=== PATIENT | female | born 1970 | race Asian ===

== ENCOUNTER 2016-10-16 17:52 | Emergency (ER) | payer OTHER ==
[~2016-10-16] VITALS: Ht 190.5 cm; Wt 154.2 kg
[~2016-10-16 17:52] MED LIST: AMLO10TA; AMLO2.5T PO; AMLO5TAB PO; ASPIRIN/ENTERIC81 MG OR; GEMFIBROZIL PO; GLIM4TAB PO; GLIP10TA55 PO; GLIP10TA66 PO; INSU100I2 SC; INVOKANA300 MG OR; JANUMET1 TA1 PO; LANTUS100 MG/ML SC; LEVEMIR FLEXPEN SC; LISI20TA11 PO; LISI20TA31 PO; LISINOP/HCTZ1 TA2 PO; LOVA20TA PO; METF500T PO; METFORMIN ER1000 MG PO; METOPROLOL25 M1 OR; NOVOLIN R U-1001 ML SC; TRAZODONE150 MG PO
[2016-10-16 17:55] VITALS: TEMP 98.3
[2016-10-16 18:21] LABS: PLATELET COUNT 283 K/uL (152-353)
[2016-10-16 18:32] LABS: POTASSIUM 3.6 mmol/L (3.6-5.2); SODIUM 133 mmol/L (136-145)
[2016-10-16 18:45] VITALS: BP 188/92
== END 2016-10-16 18:55 | disposition home or self-care (01) ==
LOC: ED 17:52
DX: J11.1 Influenza due to unidentified influenza virus with other respiratory manifestations (principal); R06.00 Dyspnea, unspecified
CPT/HCPCS: 80053; 85027; 87081; 87804; 87880; 93005; 96374; 99284; J2930

== ENCOUNTER 2016-11-12 05:23 | Emergency (ER) | payer OTHER ==
[~2016-11-12] VITALS: Ht 190.5 cm; Wt 161.5 kg
[2016-11-12 05:55] VITALS: BP 179/101; TEMP 97.5
== END 2016-11-12 05:59 | disposition home or self-care (01) ==
LOC: ED 05:23
DX: E11.40 Type 2 diabetes mellitus with diabetic neuropathy, unspecified (principal)
CPT/HCPCS: 99282; Q0177

== ENCOUNTER 2016-12-22 16:55 | Outpatient (CLI) | payer OTHER ==
[2016-12-23] MEDS ORDERED: HYDRALAZINE10 MG PO (09:30)
[2016-12-23] MEDS ORDERED: NOVOLOG100 MG/ML SC (09:34)
[2016-12-23] MEDS ORDERED: TRESIBA FL200 UNIT/M SC (09:35)
== END 2016-12-22 17:05 | disposition short-term general hospital (02) ==
LOC: AMB 16:55
DX: R53.1 Weakness (principal); E66.8 Other obesity; M54.89 Other dorsalgia; R26.89 Other abnormalities of gait and mobility
CPT/HCPCS: A0425; A0427

== ENCOUNTER 2016-12-22 17:07 | Observation (INO) | payer OTHER ==
[~2016-12-22] VITALS: Ht 190.5 cm; Wt 163.3 kg
[2016-12-22 17:06] VITALS: BP 153/104; TEMP 98.5
[2016-12-22 17:42] LABS: PLATELET COUNT 249 K/uL (152-353)
[2016-12-22 17:44] LABS: POTASSIUM 4.2 mmol/L (3.6-5.2)
[2016-12-23 04:00] VITALS: TEMP 97.9
[2016-12-23 05:15] LABS: PLATELET COUNT 235 K/uL (152-353)
[2016-12-23 05:26] LABS: POTASSIUM 3.5 mmol/L (3.6-5.2); SODIUM 140 mmol/L (136-145)
[2016-12-23 08:00] VITALS: BP 158/104; TEMP 98
[2016-12-23] MEDS ORDERED: HYDRALAZINE10 MG PO (09:30)
[2016-12-23] MEDS ORDERED: NOVOLOG100 MG/ML SC (09:34)
[2016-12-23] MEDS ORDERED: TRESIBA FL200 UNIT/M SC (09:35)
--- NOTE | 2016-12-23 14:16 | NUR ---
IV D/C'd. NO REDNESS OR EDEMA OBSERVED. DISCHARGE INSTRUCTIONS SIGNED AND GIVEN. Pt. EXIT OUT OF FRONT ENTRANCE VIA W/C.
== END 2016-12-23 14:16 | disposition home or self-care (01) ==
LOC: ED 17:07 → MED/SURG 12-23 00:18
PROVIDERS: Internal Medicine; ADMIT Specialist
DX: E11.65 Type 2 diabetes mellitus with hyperglycemia (principal); Z79.4 Long term (current) use of insulin; R41.82 Altered mental status, unspecified; M79.1 Myalgia; I10 Essential (primary) hypertension
CPT/HCPCS: 36415; 36600; 80048; 80053; 81002; 82550; 82553; 82805; 82948; 83036; 83735; 84100; 84443; 85027; 96361; 96366; 96374; 96375; 99220; 99284; G0378; J1815; J1885

== ENCOUNTER 2017-01-13 19:41 | Outpatient (CLI) | payer OTHER ==
[~2017-01-13 19:41] MED LIST changes: +HYDRALAZINE10 MG PO; +NOVOLOG100 MG/ML SC; +TRESIBA FL200 UNIT/M SC
== END 2017-01-13 19:44 | disposition short-term general hospital (02) ==
LOC: AMB 19:41
DX: R55 Syncope and collapse (principal)
CPT/HCPCS: A0425; A0427

== ENCOUNTER 2017-01-13 19:47 | Emergency (ER) | payer OTHER ==
[~2017-01-13] VITALS: Ht 190.5 cm; Wt 154.2 kg
[2017-01-13 20:19] LABS: PLATELET COUNT 283 K/uL (152-353)
[2017-01-13 20:29] LABS: POTASSIUM 3.8 mmol/L (3.6-5.2)
[2017-01-13 21:44] VITALS: BP 135/72; TEMP 98.3
== END 2017-01-13 21:50 | disposition home or self-care (01) ==
LOC: ED 19:47
DX: M79.1 Myalgia (principal); R00.0 Tachycardia, unspecified
CPT/HCPCS: 36415; 80053; 80307; 85027; 93005; 96374; 99284; G0479; J1885

== ENCOUNTER 2017-01-15 13:05 | Outpatient (CLI) | payer OTHER | END 2017-01-15 19:42 | disposition home or self-care (01) | LOC: LABW 13:05 | DX: M79.7 Fibromyalgia (principal) | CPT/HCPCS: 36415; 85651; 86039; 86140; 86430 ==

== ENCOUNTER 2017-01-21 10:18 | Outpatient (CLI) | payer OTHER | END 2017-01-21 11:30 | disposition home or self-care (01) | LOC: MRI 10:18 | DX: M79.7 Fibromyalgia (principal) ==

== ENCOUNTER 2017-02-10 10:21 | Emergency (ER) | payer OTHER ==
[~2017-02-10] VITALS: Ht 190.5 cm; Wt 149.7 kg
[2017-02-10 10:30] VITALS: TEMP 98.2
[2017-02-10 11:26] LABS: PLATELET COUNT 280 K/uL (152-353)
[2017-02-10 12:03] LABS: POTASSIUM 3.1 mmol/L (3.6-5.2); SODIUM 130 mmol/L (136-145)
[2017-02-10 14:50] VITALS: BP 153/86
== END 2017-02-10 15:15 | disposition home or self-care (01) ==
LOC: ED 10:21
DX: R11.2 Nausea with vomiting, unspecified (principal); E86.9 Volume depletion, unspecified; E86.0 Dehydration; K52.9 Noninfective gastroenteritis and colitis, unspecified; E11.65 Type 2 diabetes mellitus with hyperglycemia; R00.0 Tachycardia, unspecified
CPT/HCPCS: 36415; 80053; 82150; 83036; 83690; 85027; 93005; 96360; 96361; 96365; 96372; 96374; 99284; J1815; J1885; J2405

== ENCOUNTER 2017-04-22 00:52 | Emergency (ER) | payer OTHER ==
[~2017-04-22] VITALS: Ht 190.5 cm; Wt 145.2 kg
[2017-04-22 01:46] LABS: PLATELET COUNT 265 K/uL (152-353)
[2017-04-22 02:08] LABS: POTASSIUM 3.6 mmol/L (3.6-5.2)
[2017-04-22 03:49] VITALS: BP 177/86; TEMP 98.6
== END 2017-04-22 03:49 | disposition home or self-care (01) ==
LOC: ED 00:52
DX: K29.00 Acute gastritis without bleeding (principal); B96.81 Helicobacter pylori [H. pylori] as the cause of diseases classified elsewhere
CPT/HCPCS: 36415; 74022; 80053; 82150; 83690; 85027; 86318; 96360; 96361; 96372; 96375; 99284; J1815; J1885; J2405

== ENCOUNTER 2017-05-31 09:13 | Inpatient (IN) | payer OTHER ==
[~2017-05-31] VITALS: Ht 190.5 cm; Wt 146.1 kg
[2017-05-31 09:26] VITALS: BP 252/145; TEMP 98.6
[2017-05-31 11:16] LABS: PLATELET COUNT 274 K/uL (152-353)
[2017-05-31 11:22] LABS: POTASSIUM 3.3 mmol/L (3.6-5.2); SODIUM 132 mmol/L (136-145)
[2017-05-31 17:08] VITALS: BP 228/129; TEMP 97.8; Ht 190.5 cm; Wt 146.1 kg
[2017-05-31 20:23] VITALS: BP 234/109; TEMP 98.4
[2017-06-01] VITALS: BP 139/86; TEMP 98.4
[2017-06-01 04:00] VITALS: BP 125/68; TEMP 98.6
[2017-06-01 05:49] LABS: POTASSIUM 3.3 mmol/L (3.6-5.2); SODIUM 139 mmol/L (136-145)
[2017-06-01 06:24] LABS: PLATELET COUNT 261 K/uL (152-353)
[2017-06-01 07:57] VITALS: BP 166/85; TEMP 98
[2017-06-01 12:00] VITALS: BP 148/70; TEMP 98
[2017-06-01 16:00] VITALS: BP 167/77; TEMP 98.1
[2017-06-01 20:00] VITALS: BP 187/91; TEMP 98.7
[2017-06-02] VITALS (7 sets, daily range): BP systolic 166–210; BP diastolic 88–112; TEMP 97.9–99.6
[2017-06-02 05:34] LABS: PLATELET COUNT 256 K/uL (152-353)
[2017-06-02 05:54] LABS: POTASSIUM 3.4 mmol/L (3.6-5.2); SODIUM 136 mmol/L (136-145)
[2017-06-03] VITALS: BP 140/92; TEMP 98.4
[2017-06-03 04:00] VITALS: BP 163/107; TEMP 99
[2017-06-03 06:36] LABS: PLATELET COUNT 272 K/uL (152-353)
[2017-06-03 06:51] LABS: POTASSIUM 3.1 mmol/L (3.6-5.2); SODIUM 134 mmol/L (136-145)
[2017-06-03 07:30] VITALS: BP 176/110; TEMP 98.9
== END 2017-06-03 14:00 | disposition home or self-care (01) | DRG 603 ==
LOC: ED 09:13 → MED/SURG 15:37
PROVIDERS: Family Medicine; ADMIT Specialist
DX: L02.214 Cutaneous abscess of groin (principal); L03.314 Cellulitis of groin; I10 Essential (primary) hypertension; R52 Pain, unspecified; G89.29 Other chronic pain; G47.09 Other insomnia; E11.42 Type 2 diabetes mellitus with diabetic polyneuropathy; B95.1 Streptococcus, group B, as the cause of diseases classified elsewhere
CPT/HCPCS: 36415; 80048; 80053; 82947; 82948; 83605; 83735; 83880; 84100; 85027; 85651; 87040; 87070; 87077; 87185; 87186; 87205; 93005; 96365; 96372; 99283; J1200; J1815; J1885; J2060; J2270; J2543

== ENCOUNTER 2017-07-07 01:44 | Emergency (ER) | payer OTHER ==
[~2017-07-07] VITALS: Ht 190.5 cm; Wt 151.5 kg
[2017-07-07 01:57] VITALS: BP 188/115; TEMP 98.2
== END 2017-07-07 02:27 | disposition home or self-care (01) ==
LOC: ED 01:44
DX: R52 Pain, unspecified (principal); I10 Essential (primary) hypertension
CPT/HCPCS: 99281

== ENCOUNTER 2017-07-08 13:36 | Outpatient (CLI) | payer OTHER ==
[2017-07-08 14:05] LABS: PLATELET COUNT 269 K/uL (152-353)
[2017-07-08 14:39] LABS: POTASSIUM 3.8 mmol/L (3.6-5.2); SODIUM 135 mmol/L (136-145)
== END 2017-07-08 21:18 | disposition home or self-care (01) ==
LOC: LAB 13:36
PROVIDERS: Nurse Practitioner Family
DX: Z00.00 Encounter for general adult medical examination without abnormal findings (principal); R53.83 Other fatigue; R53.81 Other malaise; E11.65 Type 2 diabetes mellitus with hyperglycemia; I10 Essential (primary) hypertension; E78.4 Other hyperlipidemia; Z79.899 Other long term (current) drug therapy; Z51.81 Encounter for therapeutic drug level monitoring
CPT/HCPCS: 80053; 80061; 83036; 84436; 84443; 84550; 85027; 85651; 86039; 86431

== ENCOUNTER 2017-07-23 10:38 | Emergency (ER) | payer OTHER ==
[~2017-07-23] VITALS: Ht 190.5 cm; Wt 155.1 kg
[2017-07-23 12:54] LABS: PLATELET COUNT 250 K/uL (152-353)
[2017-07-23 13:05] LABS: POTASSIUM 4.4 mmol/L (3.6-5.2); SODIUM 133 mmol/L (136-145)
[2017-07-23 19:28] VITALS: BP 156/91; TEMP 98.5
== END 2017-07-23 19:39 | disposition home or self-care (01) ==
LOC: ED 10:38
PROVIDERS: Emergency Medicine
DX: L03.115 Cellulitis of right lower limb (principal); I10 Essential (primary) hypertension
CPT/HCPCS: 36415; 80053; 82550; 84484; 85027; 85379; 96374; 96375; 96376; 99285; J0360; J2060; J3490

== ENCOUNTER 2017-08-26 13:09 | Emergency (ER) | payer OTHER ==
[~2017-08-26] VITALS: Ht 182.9 cm; Wt 152.0 kg
[2017-08-26 13:12] VITALS: TEMP 97.7
[2017-08-26 13:47] LABS: PLATELET COUNT 347 K/uL (152-353); POTASSIUM 4.1 mmol/L (3.6-5.2)
[2017-08-26 14:07] LABS: PARTIAL THROMBOPLASTIN TIME 22.3 SECONDS (24.5-33.6)
[2017-08-26 16:29] VITALS: BP 132/89
== END 2017-08-26 16:29 | disposition home or self-care (01) ==
LOC: ED 13:09
PROVIDERS: Family Medicine
DX: I16.0 Hypertensive urgency (principal); R00.0 Tachycardia, unspecified; I45.81 Long QT syndrome
CPT/HCPCS: 36415; 80053; 82550; 84484; 85027; 85610; 85730; 93005; 96374; 96375; 99284; J0360; J1170; J2405; J3490

== ENCOUNTER 2017-08-28 10:40 | Outpatient (CLI) | payer OTHER | END 2017-08-28 21:51 | disposition home or self-care (01) | LOC: INF 10:40 | DX: E86.0 Dehydration (principal) | CPT/HCPCS: 96360 ==

== ENCOUNTER 2017-09-09 23:10 | Emergency (ER) | payer OTHER ==
[~2017-09-09] VITALS: Ht 190.5 cm; Wt 152.0 kg
[2017-09-09 23:49] LABS: PLATELET COUNT 289 K/uL (152-353)
[2017-09-10 00:02] LABS: POTASSIUM 3.1 mmol/L (3.6-5.2)
[2017-09-10 02:37] VITALS: BP 168/120; TEMP 99.1
== END 2017-09-10 02:38 | disposition home or self-care (01) ==
LOC: ED 23:10
DX: N20.0 Calculus of kidney (principal); K43.9 Ventral hernia without obstruction or gangrene; E11.9 Type 2 diabetes mellitus without complications
CPT/HCPCS: 36415; 80053; 82150; 83690; 85027; 96374; 96375; 96376; 99284; J1815; J2175; J2405

== ENCOUNTER 2017-11-01 02:28 | Emergency (ER) | payer OTHER ==
[~2017-11-01] VITALS: Ht 190.5 cm; Wt 147.0 kg
[2017-11-01 03:16] LABS: PLATELET COUNT 291 K/uL (152-353)
[2017-11-01 03:58] LABS: POTASSIUM 3.5 mmol/L (3.6-5.2)
[2017-11-01 05:55] VITALS: BP 128/73; TEMP 97.5
== END 2017-11-01 06:11 | disposition short-term general hospital (02) ==
LOC: ED 02:28
DX: K56.699 Other intestinal obstruction unspecified as to partial versus complete obstruction (principal); E11.9 Type 2 diabetes mellitus without complications; I10 Essential (primary) hypertension
CPT/HCPCS: 36415; 74022; 80053; 82150; 83690; 85027; 96365; 96374; 96375; 99284; J1885; J2175; J2405; J3490

== ENCOUNTER 2017-11-01 06:14 | Outpatient (CLI) | payer OTHER | END 2017-11-01 06:20 | disposition short-term general hospital (02) | LOC: AMB 06:14 | DX: K56.699 Other intestinal obstruction unspecified as to partial versus complete obstruction (principal); E11.9 Type 2 diabetes mellitus without complications; I10 Essential (primary) hypertension | CPT/HCPCS: A0425; A0429 ==

== ENCOUNTER 2017-11-02 10:48 | Outpatient (CLI) | payer OTHER ==
[2017-11-02 11:55] LABS: POTASSIUM 3.4 mmol/L (3.6-5.2)
== END 2017-11-02 23:35 | disposition home or self-care (01) ==
LOC: LABW 10:48
PROVIDERS: Nurse Practitioner Family
DX: E11.65 Type 2 diabetes mellitus with hyperglycemia (principal); K42.9 Umbilical hernia without obstruction or gangrene
CPT/HCPCS: 36415; 80053; 83605

== ENCOUNTER 2017-11-05 10:03 | Outpatient (CLI) | payer OTHER | END 2017-11-05 22:47 | disposition home or self-care (01) | LOC: NM 10:03 | DX: K31.84 Gastroparesis (principal) | CPT/HCPCS: A9541 ==

== ENCOUNTER 2017-12-28 12:14 | Emergency (ER) | payer OTHER ==
[~2017-12-28] VITALS: Ht 190.5 cm; Wt 145.2 kg
[2017-12-28 13:58] LABS: PLATELET COUNT 230 K/uL (152-353)
[2017-12-28 15:03] LABS: POTASSIUM 3.5 mmol/L (3.6-5.2)
[2017-12-28] MEDS ORDERED: PHENELX32 PO (15:14)
[2017-12-28] MEDS ORDERED: PANTOPRAZOLE 40MG TA PO (15:14)
[2017-12-28 15:46] VITALS: BP 135/87; TEMP 97.2
== END 2017-12-28 15:53 | disposition home or self-care (01) ==
LOC: ED 12:14
DX: K25.9 Gastric ulcer, unspecified as acute or chronic, without hemorrhage or perforation (principal); K31.84 Gastroparesis; M25.50 Pain in unspecified joint
CPT/HCPCS: 36415; 80053; 80307; 81000; 82150; 83690; 85027; 99284

== ENCOUNTER 2018-01-15 00:55 | Emergency (ER) | payer OTHER ==
[~2018-01-15] VITALS: Ht 190.5 cm; Wt 145.2 kg
[~2018-01-15 00:55] MED LIST changes: +PANTOPRAZOLE 40MG TA PO; +PHENELX32 PO
[2018-01-15 01:44] LABS: PLATELET COUNT 303 K/uL (152-353)
[2018-01-15 02:30] LABS: POTASSIUM 3.4 mmol/L (3.6-5.2)
[2018-01-15 06:27] VITALS: BP 172/103; TEMP 98.7
== END 2018-01-15 06:38 | disposition short-term general hospital (02) ==
LOC: ED 00:55
DX: J81.0 Acute pulmonary edema (principal); R00.0 Tachycardia, unspecified
CPT/HCPCS: 36415; 36600; 80053; 81000; 82550; 82805; 83880; 84484; 85027; 87077; 87086; 87088; 87186; 93005; 94664; 96372; 99284; J1940; J2930

== ENCOUNTER 2018-01-15 06:36 | Outpatient (CLI) | payer OTHER | END 2018-01-15 08:00 | disposition short-term general hospital (02) | LOC: AMB 06:36 | DX: J81.0 Acute pulmonary edema (principal); R00.0 Tachycardia, unspecified | CPT/HCPCS: A0425; A0427 ==

== ENCOUNTER 2018-03-12 23:53 | Emergency (ER) | payer OTHER ==
[~2018-03-12] VITALS: Ht 190.5 cm; Wt 154.2 kg
[~2018-03-12 23:53] MED LIST changes: -ASPIRIN/ENTERIC81 MG OR; +ASPIRIN/ENTERIC81 MG PO
[2018-03-13 00:02] VITALS: TEMP 98.8
[2018-03-13] MEDS ORDERED: ACYCLOVIR800 MG PO (00:10)
[2018-03-13 01:03] VITALS: BP 174/94
== END 2018-03-13 01:04 | disposition home or self-care (01) ==
LOC: ED 23:53
DX: B02.9 Zoster without complications (principal)
CPT/HCPCS: 96372; 99283; J2175

== ENCOUNTER 2018-03-23 14:37 | Emergency (ER) | payer OTHER ==
[~2018-03-23] VITALS: Ht 190.5 cm; Wt 154.2 kg
[~2018-03-23 14:37] MED LIST changes: +ACYCLOVIR800 MG PO
[2018-03-23 15:39] LABS: PLATELET COUNT 327 K/uL (152-353)
[2018-03-23 15:52] LABS: POTASSIUM 3.9 mmol/L (3.6-5.2)
[2018-03-23 19:48] VITALS: BP 156/114; TEMP 98.6
== END 2018-03-23 19:48 | disposition home or self-care (01) ==
LOC: ED 14:37
DX: J45.901 Unspecified asthma with (acute) exacerbation (principal); J18.9 Pneumonia, unspecified organism; R06.02 Shortness of breath
CPT/HCPCS: 36415; 80053; 81000; 83880; 85027; 93005; 94664; 96360; 96374; 96375; 99284; J1940; J2270; J2930

== ENCOUNTER 2018-06-06 09:03 | Outpatient (CLI) | payer OTHER ==
[2018-06-06] MEDS ORDERED: AMLODIPINE BESYLATE PO (10:25)
[2018-06-06] MEDS ORDERED: MOBIC15 MG PO (10:31)
[2018-06-06] MEDS ORDERED: HYDR25TA60 PO (10:32)
== END 2018-06-06 09:13 | disposition short-term general hospital (02) ==
LOC: AMB 09:03
DX: M79.661 Pain in right lower leg (principal)
CPT/HCPCS: A0425; A0427

== ENCOUNTER 2018-06-06 09:04 | Emergency (ER) | payer OTHER ==
[~2018-06-06] VITALS: Ht 190.5 cm; Wt 145.2 kg
[2018-06-06 09:04] VITALS: TEMP 97.3
[2018-06-06] MEDS ORDERED: AMLODIPINE BESYLATE PO (10:25)
[2018-06-06] MEDS ORDERED: MOBIC15 MG PO (10:31)
[2018-06-06] MEDS ORDERED: HYDR25TA60 PO (10:32)
[2018-06-06 11:27] LABS: PLATELET COUNT 223 K/uL (152-353)
[2018-06-06 11:33] LABS: POTASSIUM 3.9 mmol/L (3.6-5.2)
[2018-06-06 13:05] VITALS: BP 106/68
== END 2018-06-06 13:05 | disposition home or self-care (01) ==
LOC: ED 10:08
PROVIDERS: Family Medicine
PROC: 2W3QX1Z Immobilization of Right Lower Leg using Splint (ICD-10-PCS; principal; 2018-06-06)
DX: S93.491A Sprain of other ligament of right ankle, initial encounter (principal); S80.01XA Contusion of right knee, initial encounter; W18.39XA Other fall on same level, initial encounter; Y92.89 Other specified places as the place of occurrence of the external cause
CPT/HCPCS: 36415; 80053; 85027; 96372; 99283; J1885; L1830

== ENCOUNTER 2018-06-27 06:35 | Emergency (ER) | payer OTHER ==
[~2018-06-27] VITALS: Ht 190.5 cm; Wt 145.2 kg
[~2018-06-27 06:35] MED LIST changes: +AMLODIPINE BESYLATE PO; +HYDR25TA60 PO; +MOBIC15 MG PO
[2018-06-27] MEDS ORDERED: OMEPRAZOLE20 M1 PO (06:49)
[2018-06-27] MEDS ORDERED: TIZANIDINE HYDRO4 MG PO (06:49)
[2018-06-27] MEDS ORDERED: SEROQUEL25 MG PO (06:50)
[2018-06-27] MEDS ORDERED: VICODIN HP1 TA1 PO (06:50)
[2018-06-27 07:43] LABS: PLATELET COUNT 319 K/uL (152-353)
[2018-06-27 07:50] LABS: POTASSIUM 3.3 mmol/L (3.6-5.2)
[2018-06-27 08:28] VITALS: BP 140/88; TEMP 97.8
== END 2018-06-27 08:28 | disposition home or self-care (01) ==
LOC: ED 06:35
PROVIDERS: Family Medicine
DX: R11.2 Nausea with vomiting, unspecified (principal); R10.13 Epigastric pain; R07.89 Other chest pain; E11.65 Type 2 diabetes mellitus with hyperglycemia; E11.43 Type 2 diabetes mellitus with diabetic autonomic (poly)neuropathy; K31.84 Gastroparesis; I50.9 Heart failure, unspecified; R00.0 Tachycardia, unspecified
CPT/HCPCS: 36415; 74022; 80053; 81000; 82150; 82550; 82553; 83690; 83880; 84484; 85027; 85379; 93005; 96360; 99284

== ENCOUNTER 2018-09-22 10:57 | Emergency (ER) | payer OTHER ==
[~2018-09-22] VITALS: Ht 190.5 cm; Wt 145.2 kg
[~2018-09-22 10:57] MED LIST changes: +OMEPRAZOLE20 M1 PO; +SEROQUEL25 MG PO; +TIZANIDINE HYDRO4 MG PO; +VICODIN HP1 TA1 PO
[2018-09-22 11:16] VITALS: BP 149/108; TEMP 98.4
== END 2018-09-22 11:35 | disposition left against medical advice (07) ==
LOC: ED 10:57
DX: K27.3 Acute peptic ulcer, site unspecified, without hemorrhage or perforation (principal)
CPT/HCPCS: 99281

== ENCOUNTER 2018-10-17 10:14 | Outpatient (CLI) | payer OTHER ==
[2018-10-17] MEDS ORDERED: HYDR25TA60 PO (10:41)
== END 2018-10-17 10:24 | disposition short-term general hospital (02) ==
LOC: AMB 10:14
DX: R52 Pain, unspecified (principal)
CPT/HCPCS: A0425; A0427

== ENCOUNTER 2018-10-17 10:29 | Emergency (ER) | payer OTHER ==
[~2018-10-17] VITALS: Ht 190.5 cm; Wt 145.2 kg
[2018-10-17] MEDS ORDERED: HYDR25TA60 PO (10:41)
[2018-10-17 11:39] LABS: PLATELET COUNT 264 K/uL (152-353)
[2018-10-17 11:49] LABS: POTASSIUM 3.9 mmol/L (3.6-5.2)
[2018-10-17 16:10] LABS: POTASSIUM 3.9 mmol/L (3.6-5.2)
[2018-10-17 17:30] VITALS: BP 125/78; TEMP 97.7
== END 2018-10-17 17:30 | disposition home or self-care (01) ==
LOC: ED 10:29
PROVIDERS: Family Medicine
DX: G89.29 Other chronic pain (principal); E87.1 Hypo-osmolality and hyponatremia; E11.9 Type 2 diabetes mellitus without complications
CPT/HCPCS: 80048; 80053; 81000; 85027; 96361; 96372; 96374; 96375; 99284; J1815; J1885; J1940; J2175; J2550

== ENCOUNTER 2019-01-15 17:49 | Inpatient (IN) | payer OTHER ==
[~2019-01-15] VITALS: Ht 190.5 cm; Wt 132.6 kg
[2019-01-15 18:08] VITALS: BP 148/87; TEMP 98.8
[2019-01-15 18:31] LABS: PLATELET COUNT 324 K/uL (152-353)
[2019-01-15 18:45] LABS: POTASSIUM 5.7 mmol/L (3.6-5.2)
[2019-01-15 19:22] VITALS: BP 133/91
[2019-01-15 22:46] VITALS: BP 130/78; TEMP 98.5; Ht 190.5 cm; Wt 132.6 kg
[2019-01-16] VITALS (7 sets, daily range): BP systolic 104–186; BP diastolic 76–110; TEMP 98–99.1
[2019-01-16 02:23] LABS: PLATELET COUNT 257 K/uL (152-353)
[2019-01-16 02:33] LABS: POTASSIUM 3.2 mmol/L (3.6-5.2)
[2019-01-16 17:35] LABS: POTASSIUM 2.9 mmol/L (3.6-5.2)
[2019-01-17 04:00] VITALS: BP 192/104; TEMP 98.4
[2019-01-17 08:00] VITALS: BP 176/80; TEMP 98.5
[2019-01-17 12:00] VITALS: BP 202/114; TEMP 98.7
[2019-01-17 16:00] VITALS: BP 238/118; TEMP 98.5
[2019-01-17 16:31] LABS: PLATELET COUNT 192 K/uL (152-353)
[2019-01-17 16:43] LABS: POTASSIUM 3.2 mmol/L (3.6-5.2)
== END 2019-01-17 20:20 | disposition short-term general hospital (02) | DRG 375 ==
LOC: ED 17:49 → MED/SURG 20:10
PROVIDERS: Internal Medicine; ADMIT Family Medicine
PROC: 05H633Z Insertion of Infusion Device into Left Subclavian Vein, Percutaneous Approach (ICD-10-PCS; principal; 2019-01-17)
DX: C16.9 Malignant neoplasm of stomach, unspecified (principal); N17.8 Other acute kidney failure; E87.2 Acidosis; I10 Essential (primary) hypertension; E11.9 Type 2 diabetes mellitus without complications; E87.5 Hyperkalemia; R10.12 Left upper quadrant pain
CPT/HCPCS: 36415; 74022; 80048; 80053; 82150; 83605; 83690; 85027; 96360; 96375; 99284; C1751; J0360; J1170; J1650; J1815; J2185; J2270; J2405; J2550; J3490

== ENCOUNTER 2019-06-16 11:06 | Outpatient (CLI) | payer OTHER ==
[2019-06-16 11:20] VITALS: BP 124/68; TEMP 97.8
[2019-06-16 14:24] LABS: PLATELET COUNT 300 K/uL (152-353)
[2019-06-16 14:34] LABS: POTASSIUM 3.6 mmol/L (3.6-5.2)
== END 2019-06-16 11:48 | disposition home or self-care (01) ==
LOC: INF 11:06
PROVIDERS: Registered Nurse
DX: E78.5 Hyperlipidemia, unspecified (principal); R53.83 Other fatigue; E55.9 Vitamin D deficiency, unspecified; K11.7 Disturbances of salivary secretion; M79.7 Fibromyalgia; Z79.899 Other long term (current) drug therapy
CPT/HCPCS: 36591; 80053; 80061; 82306; 84439; 84443; 85027; 85651; 86140; 96374

== ENCOUNTER 2019-09-08 23:53 | Emergency (ER) | payer OTHER ==
[~2019-09-08] VITALS: Ht 190.5 cm; Wt 133.8 kg
[2019-09-09 01:11] LABS: PLATELET COUNT 273 K/uL (152-353)
[2019-09-09 01:20] LABS: POTASSIUM 3.2 mmol/L (3.6-5.2)
[2019-09-09 04:08] VITALS: BP 155/78; TEMP 98.1
== END 2019-09-09 04:08 | disposition home or self-care (01) ==
LOC: ED 23:53
PROVIDERS: Hospitalist
DX: K29.60 Other gastritis without bleeding (principal); E11.65 Type 2 diabetes mellitus with hyperglycemia; I16.0 Hypertensive urgency; R00.0 Tachycardia, unspecified
CPT/HCPCS: 36415; 36600; 80053; 81000; 81002; 81025; 82150; 82550; 82805; 83690; 84484; 85027; 93005; 96360; 96375; 99284; J1815; J1885; J2405; J3490

== ENCOUNTER 2019-11-28 08:16 | Outpatient (CLI) | payer OTHER | END 2019-11-28 19:34 | disposition home or self-care (01) | LOC: MRI 08:16 | DX: M13.851 Other specified arthritis, right hip (principal) ==

== ENCOUNTER 2019-12-31 11:56 | Emergency (ER) | payer OTHER ==
[~2019-12-31] VITALS: Ht 190.5 cm; Wt 133.8 kg
[2019-12-31 16:45] VITALS: BP 133/78; TEMP 98.1
== END 2019-12-31 16:46 | disposition home or self-care (01) ==
LOC: ED 11:56
DX: S39.012A Strain of muscle, fascia and tendon of lower back, initial encounter (principal); S40.011A Contusion of right shoulder, initial encounter; S70.01XA Contusion of right hip, initial encounter; S60.211A Contusion of right wrist, initial encounter; W18.39XA Other fall on same level, initial encounter; Y92.89 Other specified places as the place of occurrence of the external cause
CPT/HCPCS: 36415; 96360; 96375; 99284; J1642; J1885

== ENCOUNTER 2020-01-31 09:30 | Outpatient (CLI) | payer OTHER | END 2020-01-31 20:33 | disposition home or self-care (01) | LOC: CT 09:30 | DX: R94.2 Abnormal results of pulmonary function studies (principal) ==

== ENCOUNTER 2020-02-28 09:58 | Emergency (ER) | payer OTHER ==
[~2020-02-28] VITALS: Ht 190.5 cm; Wt 133.8 kg
[2020-02-28 11:23] LABS: PLATELET COUNT 223 K/uL (152-353)
[2020-02-28 11:35] LABS: POTASSIUM 3.6 mmol/L (3.6-5.2); SODIUM 130 mmol/L (136-145)
[2020-02-28 19:51] VITALS: BP 137/87; TEMP 100.5
== END 2020-02-28 19:52 | disposition home or self-care (01) ==
LOC: ED 09:58
PROVIDERS: Family Medicine
DX: E11.65 Type 2 diabetes mellitus with hyperglycemia (principal); Z79.4 Long term (current) use of insulin; R11.0 Nausea; E87.1 Hypo-osmolality and hyponatremia
CPT/HCPCS: 36591; 80053; 81000; 81002; 82550; 82962; 84484; 85027; 93005; 96360; 96361; 96375; 99284; J1642; J1815; J2405; J2550

== ENCOUNTER 2020-03-05 08:40 | Outpatient (CLI) | payer OTHER | END 2020-03-05 22:35 | disposition home or self-care (01) | LOC: CT 08:40 | DX: M10.09 Idiopathic gout, multiple sites (principal); M17.0 Bilateral primary osteoarthritis of knee; M19.041 Primary osteoarthritis, right hand; M19.042 Primary osteoarthritis, left hand; M19.071 Primary osteoarthritis, right ankle and foot; M19.072 Primary osteoarthritis, left ankle and foot; M35.01 Sjogren syndrome with keratoconjunctivitis; M79.7 Fibromyalgia; R76.0 Raised antibody titer; Z68.35 Body mass index [BMI] 35.0-35.9, adult; R94.2 Abnormal results of pulmonary function studies ==

== ENCOUNTER 2020-03-30 11:20 | Outpatient (CLI) | payer OTHER ==
[2020-03-30 11:51] LABS: POTASSIUM 3.5 mmol/L (3.6-5.2)
== END 2020-03-30 20:40 | disposition home or self-care (01) ==
LOC: LABW 11:20
PROVIDERS: Internal Medicine Endocrinology, Diabetes & Metabolism
DX: E11.65 Type 2 diabetes mellitus with hyperglycemia (principal); E78.49 Other hyperlipidemia; I10 Essential (primary) hypertension; E66.9 Obesity, unspecified
CPT/HCPCS: 36415; 80053; 80061; 82043; 82570; 83519; 84681; 86341

== ENCOUNTER 2020-04-25 01:33 | Emergency (ER) | payer OTHER ==
[~2020-04-25] VITALS: Ht 190.5 cm; Wt 127.0 kg
[2020-04-25 02:50] LABS: POTASSIUM 3.4 mmol/L (3.6-5.2)
[2020-04-25 04:10] LABS: PLATELET COUNT 262 K/uL (152-353)
[2020-04-25 06:09] VITALS: BP 217/101; TEMP 98.9
== END 2020-04-25 06:09 | disposition home or self-care (01) ==
LOC: ED 01:33
PROVIDERS: Emergency Medicine Emergency Medical Services
DX: R11.2 Nausea with vomiting, unspecified (principal); S76.812A Strain of other specified muscles, fascia and tendons at thigh level, left thigh, initial encounter; Z98.890 Other specified postprocedural states
CPT/HCPCS: 36415; 80053; 83690; 85027; 96360; 96375; 99284; J1642; J1885; J2270; J2405; J3490

== ENCOUNTER 2020-07-11 11:14 | Day surgery (SDC) | payer OTHER ==
[2020-07-09 11:26] LABS: PLATELET COUNT 217 K/uL (152-353)
[2020-07-09 11:35] LABS: POTASSIUM 3.1 mmol/L (3.6-5.2)
[~2020-07-11] VITALS: Ht 30.5 cm; Wt 0.5 kg
== END 2020-07-11 15:55 | disposition home or self-care (01) ==
LOC: OR 11:14
PROVIDERS: ATTEND Internal Medicine Gastroenterology
PROC: 0DBK8ZZ Excision of Ascending Colon, Via Natural or Artificial Opening Endoscopic (ICD-10-PCS; principal; 2020-07-11)
PROC: 0DBM8ZZ Excision of Descending Colon, Via Natural or Artificial Opening Endoscopic (ICD-10-PCS; 2020-07-11)
PROC: 0DBE8ZZ Excision of Large Intestine, Via Natural or Artificial Opening Endoscopic (ICD-10-PCS; 2020-07-11)
DX: K52.89 Other specified noninfective gastroenteritis and colitis (principal); D12.2 Benign neoplasm of ascending colon; D12.4 Benign neoplasm of descending colon; K64.8 Other hemorrhoids; R10.30 Lower abdominal pain, unspecified; R79.89 Other specified abnormal findings of blood chemistry; R19.7 Diarrhea, unspecified
CPT/HCPCS: 80053; 85027; J1642; J2704; J7120

== ENCOUNTER 2020-08-04 05:21 | Emergency (ER) | payer OTHER ==
[~2020-08-04] VITALS: Ht 190.5 cm; Wt 123.4 kg
[2020-08-04 06:44] LABS: PLATELET COUNT 257 K/uL (152-353)
[2020-08-04 08:40] VITALS: BP 149/76; TEMP 98.9
== END 2020-08-04 08:40 | disposition home or self-care (01) ==
LOC: ED 05:21
PROVIDERS: Family Medicine
DX: N39.0 Urinary tract infection, site not specified (principal)
CPT/HCPCS: 81000; 85027; 96374; 96375; 96376; 99284; J0360; J1642; J1885; J2175; J2405; J2930

== ENCOUNTER 2020-08-29 16:51 | Emergency (ER) | payer OTHER ==
[~2020-08-29] VITALS: Ht 190.5 cm; Wt 123.4 kg
[2020-08-29 18:35] LABS: POTASSIUM 3.8 mmol/L (3.6-5.2); SODIUM 138 mmol/L (136-145)
[2020-08-29 18:37] LABS: PLATELET COUNT 302 K/uL (152-353)
[2020-08-29 18:44] LABS: PARTIAL THROMBOPLASTIN TIME 21.3 SECONDS (24.5-33.6)
[2020-08-29 19:55] VITALS: BP 147/79; TEMP 98.8
== END 2020-08-29 19:57 | disposition home or self-care (01) ==
LOC: ED 16:51
PROVIDERS: Hospitalist
DX: I16.0 Hypertensive urgency (principal); N39.0 Urinary tract infection, site not specified
CPT/HCPCS: 36415; 80053; 81000; 82550; 83880; 84484; 85027; 85610; 85730; 93005; 96365; 96375; 96376; 99284; J0360; J0696; J1642; J2270; J2405

== ENCOUNTER 2020-08-30 16:44 | Outpatient (CLI) | payer OTHER | END 2020-08-30 23:50 | disposition home or self-care (01) | LOC: LAB 16:44 | PROVIDERS: ATTEND Nurse Practitioner Family | DX: I10 Essential (primary) hypertension (principal); M06.4 Inflammatory polyarthropathy; M19.041 Primary osteoarthritis, right hand; M19.071 Primary osteoarthritis, right ankle and foot; Z79.899 Other long term (current) drug therapy | CPT/HCPCS: 84550; 86140 ==

== ENCOUNTER 2020-09-09 19:28 | Emergency (ER) | payer OTHER ==
[~2020-09-09] VITALS: Ht 190.5 cm; Wt 125.6 kg
[2020-09-09 20:16] LABS: PLATELET COUNT 231 K/uL (152-353)
[2020-09-09 20:48] LABS: POTASSIUM 2.8 mmol/L (3.6-5.2)
[2020-09-09 23:35] VITALS: BP 178/113; TEMP 98.1
== END 2020-09-09 23:35 | disposition home or self-care (01) ==
LOC: ED 19:28
PROVIDERS: Hospitalist
DX: R10.12 Left upper quadrant pain (principal); R11.2 Nausea with vomiting, unspecified; E87.6 Hypokalemia
CPT/HCPCS: 36415; 36591; 80053; 81000; 81025; 82150; 83690; 85027; 87086; 87088; 96360; 96375; 99284; J1170; J1642; J1885; J2405

== ENCOUNTER 2020-09-23 14:32 | Emergency (ER) | payer OTHER ==
[~2020-09-23] VITALS: Ht 190.5 cm; Wt 123.4 kg
[2020-09-23 15:32] LABS: PLATELET COUNT 258 K/uL (152-353)
[2020-09-23 15:43] LABS: POTASSIUM 3.5 mmol/L (3.6-5.2)
[2020-09-23 20:00] VITALS: BP 112/71; TEMP 98
== END 2020-09-23 20:20 | disposition home or self-care (01) ==
LOC: ED 14:32
PROVIDERS: Family Medicine
DX: M51.26 Other intervertebral disc displacement, lumbar region (principal); E11.9 Type 2 diabetes mellitus without complications; Z79.4 Long term (current) use of insulin; S80.11XA Contusion of right lower leg, initial encounter; W18.2XXA Fall in (into) shower or empty bathtub, initial encounter; Y92.89 Other specified places as the place of occurrence of the external cause
CPT/HCPCS: 36591; 80053; 81002; 82948; 85027; 96360; 96361; 96375; 99284; J1642; J1815; J1885

== ENCOUNTER 2020-09-30 17:24 | Emergency (ER) | payer OTHER ==
[~2020-09-30] VITALS: Ht 190.5 cm; Wt 123.4 kg
[2020-09-30 18:48] LABS: PLATELET COUNT 199 K/uL (152-353)
[2020-09-30 18:53] LABS: POTASSIUM 2.8 mmol/L (3.6-5.2)
[2020-09-30 19:03] LABS: PARTIAL THROMBOPLASTIN TIME 19.7 SECONDS (24.5-33.6)
[2020-09-30 20:40] VITALS: BP 143/82; TEMP 98.9
== END 2020-09-30 20:40 | disposition home or self-care (01) ==
LOC: ED 17:24
PROVIDERS: Hospitalist
DX: I16.0 Hypertensive urgency (principal); R51.9 Headache, unspecified; E87.6 Hypokalemia
CPT/HCPCS: 36415; 80053; 82550; 83880; 84484; 85027; 85610; 85730; 93005; 96360; 96374; 96375; 96376; 99284; J0360; J1642; J1815; J1885; J2405

== ENCOUNTER 2020-12-24 11:32 | Emergency (ER) | payer OTHER ==
[~2020-12-24] VITALS: Ht 190.5 cm; Wt 123.4 kg
[2020-12-24 12:16] LABS: PLATELET COUNT 259 K/uL (152-353)
[2020-12-24 12:28] LABS: POTASSIUM 3.2 mmol/L (3.6-5.2); SODIUM 132 mmol/L (136-145)
[2020-12-24 14:45] VITALS: BP 103/67; TEMP 97.9
== END 2020-12-24 14:45 | disposition home or self-care (01) ==
LOC: ED 11:36
PROVIDERS: Emergency Medicine
DX: E10.65 Type 1 diabetes mellitus with hyperglycemia (principal); Z79.4 Long term (current) use of insulin; M25.552 Pain in left hip; M54.89 Other dorsalgia
CPT/HCPCS: 80053; 82150; 82948; 83690; 84484; 85027; 96360; 96375; 99284; J1642; J1815; J1885

== ENCOUNTER 2021-01-17 16:14 | Observation (INO) | payer OTHER ==
[~2021-01-17] VITALS: Ht 190.5 cm; Wt 123.4 kg
[2021-01-31 16:10] LABS: POTASSIUM 3.9 mmol/L (3.6-5.2); SODIUM 138 mmol/L (136-145)
[2021-01-31 16:13] LABS: PLATELET COUNT 258 K/uL (152-353)
[2021-02-01 10:53] LABS: PLATELET COUNT 238 K/uL (152-353)
[2021-02-01 10:54] LABS: POTASSIUM 3.7 mmol/L (3.6-5.2); SODIUM 141 mmol/L (136-145)
== END 2021-01-19 10:05 | disposition home or self-care (01) ==
LOC: ED 16:14 → MED/SURG 19:00
PROVIDERS: ADMIT Internal Medicine Endocrinology, Diabetes & Metabolism; ATTEND Internal Medicine Endocrinology, Diabetes & Metabolism
DX: I13.0 Hypertensive heart and chronic kidney disease with heart failure and stage 1 through stage 4 chronic kidney disease, or unspecified chronic kidney disease (principal); G89.4 Chronic pain syndrome; E78.00 Pure hypercholesterolemia, unspecified; E78.49 Other hyperlipidemia; E83.42 Hypomagnesemia; N18.9 Chronic kidney disease, unspecified; I50.89 Other heart failure; E11.22 Type 2 diabetes mellitus with diabetic chronic kidney disease
CPT/HCPCS: 36415; 80048; 80053; 82550; 82553; 83735; 84484; 85027; 87635; 93005; 96374; 96375; 99220; 99284; G0378; J1885; J2175; J2270; J2405; J3475; J3490; U0003

== ENCOUNTER 2021-01-25 05:17 | Emergency (ER) | payer OTHER ==
[2021-02-04 07:02] LABS: PLATELET COUNT 287 K/uL (152-353)
[2021-02-04 07:04] LABS: POTASSIUM 3.7 mmol/L (3.6-5.2)
== END 2021-01-25 08:50 | disposition home or self-care (01) ==
LOC: ED 05:17
PROVIDERS: Emergency Medicine
DX: R10.84 Generalized abdominal pain (principal); N20.0 Calculus of kidney; K42.9 Umbilical hernia without obstruction or gangrene; Z87.442 Personal history of urinary calculi
CPT/HCPCS: 36415; 80053; 80307; 81000; 82150; 83690; 85027; 96360; 96375; 96376; 99284

== ENCOUNTER 2021-01-28 14:35 | Outpatient (CLI) | payer OTHER | END 2021-01-28 23:59 | disposition home or self-care (01) | LOC: MRI 14:35 | PROVIDERS: ATTEND Nurse Practitioner | DX: M54.16 Radiculopathy, lumbar region (principal) ==

== ENCOUNTER 2021-02-26 17:34 | Emergency (ER) | payer OTHER ==
[~2021-02-26] VITALS: Ht 190.5 cm; Wt 113.4 kg
[2021-02-26 17:50] VITALS: TEMP 97
[2021-02-26 19:19] LABS: PLATELET COUNT 233 K/uL (152-353)
[2021-02-26 19:26] LABS: POTASSIUM 3.6 mmol/L (3.6-5.2)
[2021-02-27 10:10] VITALS: BP 161/94
== END 2021-02-27 10:10 | disposition still patient (30) ==
LOC: ED 17:34
PROVIDERS: Family Medicine
DX: I10 Essential (primary) hypertension (principal); G89.29 Other chronic pain; E11.9 Type 2 diabetes mellitus without complications; Z20.822 Contact with and (suspected) exposure to COVID-19; W18.39XA Other fall on same level, initial encounter; Y92.89 Other specified places as the place of occurrence of the external cause
CPT/HCPCS: 36415; 80053; 82948; 84436; 84443; 85027; 87635; 96365; 96366; 96372; 96374; 96375; 96376; 99284; J0360; J1642; J1815; J2175; J2405; J2550; J3490; U0003

== ENCOUNTER 2021-04-01 11:18 | Emergency (ER) | payer OTHER ==
[~2021-04-01] VITALS: Ht 190.5 cm; Wt 115.7 kg
[2021-04-01 13:01] LABS: PLATELET COUNT 246 K/uL (152-353)
[2021-04-01 13:15] LABS: POTASSIUM 4.5 mmol/L (3.6-5.2); SODIUM 137 mmol/L (136-145)
[2021-04-01 16:45] VITALS: BP 155/93; TEMP 98
== END 2021-04-01 16:45 | disposition home or self-care (01) ==
LOC: ED 11:18
PROVIDERS: Emergency Medicine Emergency Medical Services
DX: R10.32 Left lower quadrant pain (principal); I10 Essential (primary) hypertension
CPT/HCPCS: 80048; 80307; 81000; 84484; 85027; 93005; 96360; 96361; 96375; 99284; J1885; J2270; J2405; J3490

== ENCOUNTER 2021-04-24 21:24 | Emergency (ER) | payer OTHER ==
[~2021-04-24] VITALS: Ht 190.5 cm; Wt 115.7 kg
[2021-04-24 22:23] LABS: PLATELET COUNT 331 K/uL (152-353)
[2021-04-24 22:32] LABS: POTASSIUM 3.3 mmol/L (3.6-5.2)
[2021-04-24 23:15] VITALS: BP 131/81; TEMP 98.5
== END 2021-04-24 23:20 | disposition home or self-care (01) ==
LOC: ED 21:24
PROVIDERS: Family Medicine
DX: G89.4 Chronic pain syndrome (principal); E86.0 Dehydration; R10.12 Left upper quadrant pain
CPT/HCPCS: 36415; 80053; 82150; 83690; 85027; 93005; 96360; 96375; 99284; J1885; J2405

== ENCOUNTER 2021-06-05 16:23 | Emergency (ER) | payer OTHER ==
[~2021-06-05] VITALS: Ht 190.5 cm; Wt 108.9 kg
[2021-06-05 17:33] LABS: PLATELET COUNT 161 K/uL (152-353)
[2021-06-05 17:38] LABS: POTASSIUM 4.1 mmol/L (3.6-5.2)
[2021-06-05 19:50] VITALS: BP 136/84; TEMP 97.8
== END 2021-06-05 19:50 | disposition home or self-care (01) ==
LOC: ED 16:23
PROVIDERS: Emergency Medicine Emergency Medical Services
DX: R11.2 Nausea with vomiting, unspecified (principal); K31.84 Gastroparesis
CPT/HCPCS: 80053; 81000; 82150; 83690; 83735; 84484; 85027; 93005; 96374; 96375; 99284; J1642; J2405; J3490

== ENCOUNTER 2021-06-11 09:58 | Outpatient (CLI) | payer OTHER | END 2021-06-11 19:00 | disposition home or self-care (01) | LOC: RESP 09:58 | PROVIDERS: ATTEND Nurse Practitioner Family | DX: M35.01 Sjogren syndrome with keratoconjunctivitis (principal); I10 Essential (primary) hypertension; M06.4 Inflammatory polyarthropathy; Z79.899 Other long term (current) drug therapy ==

== ENCOUNTER 2021-06-24 10:04 | Outpatient (CLI) | payer OTHER ==
[2021-06-24 10:48] LABS: PLATELET COUNT 242 K/uL (152-353)
== END 2021-06-24 19:40 | disposition home or self-care (01) ==
LOC: LABW 10:04
PROVIDERS: ATTEND Internal Medicine
DX: I12.9 Hypertensive chronic kidney disease with stage 1 through stage 4 chronic kidney disease, or unspecified chronic kidney disease (principal); N18.31 Chronic kidney disease, stage 3a; E11.22 Type 2 diabetes mellitus with diabetic chronic kidney disease; E79.0 Hyperuricemia without signs of inflammatory arthritis and tophaceous disease
CPT/HCPCS: 36415; 80053; 81000; 82024; 82043; 82088; 82533; 82570; 83036; 83735; 83835; 83970; 84100; 84155; 84244; 84439; 84443; 84550; 85027

== ENCOUNTER 2021-08-06 15:00 | Outpatient (CLI) | payer OTHER | END 2021-08-06 19:17 | disposition home or self-care (01) | LOC: MAMMO 15:00 | PROVIDERS: ATTEND Specialist | DX: N64.4 Mastodynia (principal) | CPT/HCPCS: G0279 ==

== ENCOUNTER 2021-08-12 14:29 | Outpatient (CLI) | payer OTHER | END 2021-08-12 19:56 | disposition home or self-care (01) | LOC: US 14:29 | PROVIDERS: ATTEND Specialist | DX: N64.4 Mastodynia (principal) ==

== ENCOUNTER 2021-08-22 15:46 | Outpatient (CLI) | payer OTHER | END 2021-08-22 19:15 | disposition home or self-care (01) | LOC: CT 15:46 | PROVIDERS: ATTEND Specialist | DX: N20.0 Calculus of kidney (principal) ==

== ENCOUNTER 2021-08-26 12:35 | Outpatient (CLI) | payer OTHER | END 2021-08-26 22:09 | disposition home or self-care (01) | LOC: MRI 12:35 | PROVIDERS: ATTEND Internal Medicine | DX: M79.652 Pain in left thigh (principal) | CPT/HCPCS: 36415; 82565; 84520 ==

== ENCOUNTER 2021-08-30 12:39 | Emergency (ER) | payer OTHER ==
[~2021-08-30] VITALS: Ht 190.5 cm; Wt 108.9 kg
[2021-08-30 13:49] LABS: PLATELET COUNT 208 K/uL (152-353)
[2021-08-30 13:55] LABS: POTASSIUM 4.2 mmol/L (3.6-5.2)
[2021-08-30 15:20] VITALS: BP 167/106; TEMP 98
== END 2021-08-30 15:40 | disposition home or self-care (01) ==
LOC: ED 12:39
PROVIDERS: Hospitalist
DX: N20.0 Calculus of kidney (principal); R11.2 Nausea with vomiting, unspecified; E11.65 Type 2 diabetes mellitus with hyperglycemia; Z87.442 Personal history of urinary calculi; Z98.890 Other specified postprocedural states
CPT/HCPCS: 80053; 81000; 83690; 85027; 96360; 96365; 96375; 96376; 99284; J0360; J0696; J1170; J1642; J1815; J1885; J2405

== ENCOUNTER 2021-09-05 19:37 | Emergency (ER) | payer OTHER ==
[~2021-09-05] VITALS: Ht 190.5 cm; Wt 110.2 kg
[2021-09-05 20:58] LABS: PLATELET COUNT 254 K/uL (152-353)
[2021-09-05 21:02] LABS: POTASSIUM 3.1 mmol/L (3.6-5.2)
[2021-09-05 21:35] VITALS: BP 188/103; TEMP 99.1
== END 2021-09-05 21:35 | disposition home or self-care (01) ==
LOC: ED 19:37
PROVIDERS: Emergency Medicine
DX: R10.84 Generalized abdominal pain (principal); E87.6 Hypokalemia; I10 Essential (primary) hypertension; Z98.890 Other specified postprocedural states; Z79.4 Long term (current) use of insulin; Z51.81 Encounter for therapeutic drug level monitoring
CPT/HCPCS: 36415; 80048; 80307; 81000; 85027; 93005; 96374; 96375; 99284; J0360; J1170; J1642; J2405

== ENCOUNTER 2021-09-09 13:05 | Observation (INO) | payer OTHER ==
[~2021-09-09] VITALS: Ht 190.5 cm; Wt 110.5 kg
[2021-09-09 13:05] VITALS: BP 110/78; TEMP 98.6
[2021-09-09 13:45] VITALS: BP 104/80
[2021-09-09 13:56] LABS: PLATELET COUNT 305 K/uL (152-353)
[2021-09-09 14:10] LABS: POTASSIUM 2.7 mmol/L (3.6-5.2)
[2021-09-09 14:25] LABS: PARTIAL THROMBOPLASTIN TIME 22.7 SECONDS (24.5-33.6)
[2021-09-09 14:30] VITALS: BP 107/68
[2021-09-09 15:30] VITALS: BP 186/90
[2021-09-09 17:41] VITALS: BP 191/104; TEMP 98.8; Ht 190.5 cm; Wt 110.5 kg
[2021-09-09 20:23] VITALS: BP 162/87; TEMP 100.5
[2021-09-09] MEDS ORDERED: HYDR10TA51 PO (23:15)
[2021-09-10 00:03] VITALS: BP 107/74; TEMP 99.4
[2021-09-10 04:06] VITALS: BP 124/62; TEMP 98.4
[2021-09-10 05:39] LABS: POTASSIUM 3.1 mmol/L (3.6-5.2)
[2021-09-10] MEDS ORDERED: TIZANIDINE HYDRO4 M1 PO (07:29)
[2021-09-10] MEDS ORDERED: APAP/OXYCOD1 TAB PO (07:31)
[2021-09-10] MEDS ORDERED: TAMSULOSIN HYD0.4 MG PO (07:32)
[2021-09-10] MEDS ORDERED: LINZESS290 MCG PO (07:33)
[2021-09-10] MEDS ORDERED: NEURONTIN800 MG PO (07:34)
[2021-09-10] MEDS ORDERED: METOCLOPRAM10 MG PO (07:35)
[2021-09-10] MEDS ORDERED: DOXEPIN HYDROCH25 MG PO (07:38)
[2021-09-10] MEDS ORDERED: LIPITOR40 MG PO (07:42)
[2021-09-10 08:00] VITALS: BP 180/110; TEMP 98.5
[2021-09-10 12:00] VITALS: BP 198/90; TEMP 98.7
== END 2021-09-10 17:30 | disposition home or self-care (01) ==
LOC: ED 13:05 → MED/SURG 15:30
PROVIDERS: Emergency Medicine; ADMIT Internal Medicine; ATTEND Internal Medicine
DX: R07.89 Other chest pain (principal); E87.6 Hypokalemia; M54.50 Low back pain, unspecified; E11.22 Type 2 diabetes mellitus with diabetic chronic kidney disease; I12.9 Hypertensive chronic kidney disease with stage 1 through stage 4 chronic kidney disease, or unspecified chronic kidney disease; N18.32 Chronic kidney disease, stage 3b; N17.8 Other acute kidney failure; R10.9 Unspecified abdominal pain
CPT/HCPCS: 36415; 80048; 80053; 82948; 83880; 84484; 85027; 85610; 85730; 87635; 93005; 96360; 96365; 96372; 96374; 96375; 99220; 99284; G0378; J1642; J2405; J3490; U0003

== ENCOUNTER 2021-09-13 06:19 | Emergency (ER) | payer OTHER ==
[~2021-09-13] VITALS: Ht 190.5 cm; Wt 110.2 kg
[~2021-09-13 06:19] MED LIST changes: +APAP/OXYCOD1 TAB PO; +DOXEPIN HYDROCH25 MG PO; +HYDR10TA51 PO; +LINZESS290 MCG PO; +LIPITOR40 MG PO; +METOCLOPRAM10 MG PO; +NEURONTIN800 MG PO; +TAMSULOSIN HYD0.4 MG PO; +TIZANIDINE HYDRO4 M1 PO
[2021-09-13 06:25] VITALS: TEMP 98.9
[2021-09-13 07:36] LABS: PLATELET COUNT 196 K/uL (152-353)
[2021-09-13 08:05] LABS: POTASSIUM 3.8 mmol/L (3.6-5.2)
[2021-09-13 10:53] VITALS: BP 175/82
== END 2021-09-13 11:40 | disposition still patient (30) ==
LOC: ED 06:19
PROVIDERS: Emergency Medicine
DX: R10.31 Right lower quadrant pain (principal); I10 Essential (primary) hypertension; Z11.52 Encounter for screening for COVID-19
CPT/HCPCS: 80053; 82150; 83690; 84484; 85027; 87635; 93005; 96374; 96375; 96376; 99284; J0360; J1170; J2270; J2405; J3490; U0003

== ENCOUNTER 2021-09-17 16:43 | Emergency (ER) | payer OTHER ==
[~2021-09-17] VITALS: Ht 190.5 cm; Wt 110.2 kg
[2021-09-17 18:52] LABS: PLATELET COUNT 201 K/uL (152-353)
[2021-09-17 18:54] LABS: POTASSIUM 2.8 mmol/L (3.6-5.2)
[2021-09-17 21:10] VITALS: BP 170/90; TEMP 98.5
== END 2021-09-17 21:10 | disposition home or self-care (01) ==
LOC: ED 16:43
PROVIDERS: Emergency Medicine
DX: R10.84 Generalized abdominal pain (principal)
CPT/HCPCS: 36415; 80053; 85027; 96360; 96375; 99284; J2270; J2405; J3490

== ENCOUNTER 2021-11-23 16:42 | Emergency (ER) | payer OTHER ==
[~2021-11-23] VITALS: Ht 190.5 cm; Wt 110.2 kg
[2021-11-23 18:28] LABS: PLATELET COUNT 365 K/uL (152-353)
[2021-11-23 18:30] LABS: POTASSIUM 3.1 mmol/L (3.6-5.2)
[2021-11-23 20:20] VITALS: BP 129/83; TEMP 97.9
== END 2021-11-23 20:20 | disposition home or self-care (01) ==
LOC: ED 16:42
PROVIDERS: Emergency Medicine
DX: G89.4 Chronic pain syndrome (principal); I10 Essential (primary) hypertension; Z91.14 Patient's other noncompliance with medication regimen; E87.6 Hypokalemia; Z98.890 Other specified postprocedural states
CPT/HCPCS: 36415; 80048; 80307; 81000; 84484; 85027; 93005; 96365; 96375; 99284; J0360; J1170; J1642; J2405; J3490

== ENCOUNTER 2021-11-28 14:31 | Emergency (ER) | payer OTHER ==
[~2021-11-28] VITALS: Ht 190.5 cm; Wt 107.5 kg
[2021-11-28 14:31] VITALS: TEMP 98.4
[2021-11-28 15:45] LABS: PLATELET COUNT 347 K/uL (152-353)
[2021-11-28 17:00] VITALS: BP 144/82
== END 2021-11-28 17:14 | disposition left against medical advice (07) ==
LOC: ED 14:35
PROVIDERS: Emergency Medicine
DX: E11.65 Type 2 diabetes mellitus with hyperglycemia (principal); E87.6 Hypokalemia; Z53.29 Procedure and treatment not carried out because of patient's decision for other reasons; Z98.890 Other specified postprocedural states
CPT/HCPCS: 80053; 83880; 85027; 85379; 93005; 96374; 99284; J1642; J2405

== ENCOUNTER 2021-12-10 10:26 | Outpatient (CLI) | payer OTHER | END 2021-12-10 18:57 | disposition home or self-care (01) | LOC: RAD 10:26 | PROVIDERS: ATTEND Nurse Practitioner Family | DX: M25.512 Pain in left shoulder (principal) ==

== ENCOUNTER 2022-01-04 12:11 | Outpatient (CLI) | payer OTHER | END 2022-01-04 20:59 | disposition home or self-care (01) | LOC: RAD 12:11 → EDBD 12:11 → RAD 20:59 | PROVIDERS: ATTEND Nurse Practitioner Family | DX: M10.09 Idiopathic gout, multiple sites (principal); M19.042 Primary osteoarthritis, left hand; M25.561 Pain in right knee; M35.01 Sjogren syndrome with keratoconjunctivitis; M54.59 Other low back pain ==

== ENCOUNTER 2022-02-23 12:35 | Emergency (ER) | payer OTHER ==
[~2022-02-23] VITALS: Ht 190.5 cm; Wt 109.8 kg
[2022-02-23 12:43] VITALS: TEMP 98.8
[2022-02-23 13:28] LABS: PLATELET COUNT 234 K/uL (152-353)
[2022-02-23 13:31] LABS: POTASSIUM 3.1 mmol/L (3.6-5.2)
[2022-02-23 13:37] LABS: PARTIAL THROMBOPLASTIN TIME 21.9 SECONDS (24.5-33.6)
[2022-02-23 17:00] VITALS: BP 132/81
== END 2022-02-23 17:25 | disposition short-term general hospital (02) ==
LOC: ED 12:35
PROVIDERS: Hospitalist
DX: I21.4 Non-ST elevation (NSTEMI) myocardial infarction (principal); R07.89 Other chest pain; I10 Essential (primary) hypertension; Z11.52 Encounter for screening for COVID-19
CPT/HCPCS: 36415; 80053; 80320; 82550; 83880; 84484; 85027; 85610; 85730; 87635; 93005; 96365; 96366; 96375; 96376; 99284; J1644; J2270; J2405; U0003

== ENCOUNTER 2022-02-27 12:55 | Outpatient (CLI) | payer OTHER ==
[2022-02-27 13:10] LABS: PLATELET COUNT 226 K/uL (152-353)
[2022-02-27 13:23] LABS: POTASSIUM 3.7 mmol/L (3.6-5.2)
== END 2022-02-27 22:26 | disposition home or self-care (01) ==
LOC: LABW 12:55
PROVIDERS: ATTEND Anesthesiology
DX: Z01.818 Encounter for other preprocedural examination (principal); E11.9 Type 2 diabetes mellitus without complications; I10 Essential (primary) hypertension; I63.9 Cerebral infarction, unspecified
CPT/HCPCS: 36415; 80048; 83036; 85027

== ENCOUNTER 2022-02-27 19:44 | Emergency (ER) | payer OTHER ==
[~2022-02-27] VITALS: Ht 190.5 cm; Wt 118.8 kg
[2022-02-27 20:19] LABS: PLATELET COUNT 266 K/uL (152-353)
[2022-02-27 20:31] LABS: POTASSIUM 3.7 mmol/L (3.6-5.2)
[2022-02-27 21:10] LABS: PARTIAL THROMBOPLASTIN TIME 22.7 SECONDS (24.5-33.6)
[2022-02-27 23:10] VITALS: BP 191/125; TEMP 99.1
== END 2022-02-27 23:15 | disposition home or self-care (01) ==
LOC: ED 19:44
PROVIDERS: Emergency Medicine
DX: R07.89 Other chest pain (principal)
CPT/HCPCS: 36415; 80053; 82550; 84484; 85027; 85610; 85730; 93005; 96374; 96375; 99284; J1642; J1885; J2060; J2270; J2405

== ENCOUNTER 2022-04-21 15:38 | Emergency (ER) | payer OTHER ==
[~2022-04-21] VITALS: Ht 190.5 cm; Wt 111.6 kg
[2022-04-21 16:23] LABS: PLATELET COUNT 225 K/uL (152-353)
[2022-04-21 16:39] LABS: POTASSIUM 3.7 mmol/L (3.6-5.2)
[2022-04-21 20:25] VITALS: BP 124/80; TEMP 98.1
== END 2022-04-21 20:25 | disposition home or self-care (01) ==
LOC: ED 15:38
PROVIDERS: Emergency Medicine Emergency Medical Services
DX: E11.65 Type 2 diabetes mellitus with hyperglycemia (principal); M19.09 Primary osteoarthritis, other specified site
CPT/HCPCS: 36415; 36600; 80053; 81002; 82805; 84484; 85027; 93005; 96360; 96361; 96374; 96375; 99284; J1815; J1885; J2270; J2405

== ENCOUNTER → 2022-07-09 | Outpatient (CLI) | payer OTHER | LOC: RAD 15:28 | PROVIDERS: ATTEND Nurse Practitioner Family | DX: M54.59 Other low back pain (principal) ==

== ENCOUNTER 2022-08-12 14:30 | Outpatient (CLI) | payer OTHER | END 2022-08-12 20:38 | disposition home or self-care (01) | LOC: MRI 14:30 | PROVIDERS: ATTEND Physician Assistant | DX: M54.16 Radiculopathy, lumbar region (principal) ==

== ENCOUNTER 2022-09-12 10:19 | Outpatient (CLI) | payer OTHER | END 2022-09-12 19:24 | disposition home or self-care (01) | LOC: RAD 10:19 | PROVIDERS: ATTEND Physician Assistant | DX: M54.59 Other low back pain (principal) ==

== ENCOUNTER 2022-10-27 15:42 | Outpatient (CLI) | payer OTHER | END 2022-10-27 19:01 | disposition home or self-care (01) | LOC: RESP 15:42 | PROVIDERS: ATTEND Nurse Practitioner Family | DX: M10.09 Idiopathic gout, multiple sites (principal); M17.0 Bilateral primary osteoarthritis of knee; M35.01 Sjogren syndrome with keratoconjunctivitis; R76.0 Raised antibody titer; Z79.899 Other long term (current) drug therapy ==

== ENCOUNTER 2022-12-30 12:35 | Emergency (ER) | payer OTHER ==
[~2022-12-30] VITALS: Ht 190.5 cm; Wt 136.1 kg
[2022-12-30 12:47] VITALS: BP 153/102; TEMP 97.5
== END 2022-12-30 14:14 | disposition home or self-care (01) ==
LOC: ED 12:35
DX: M54.9 Dorsalgia, unspecified (principal); G89.29 Other chronic pain
CPT/HCPCS: 96372; 99282; J1885

== ENCOUNTER 2023-03-25 16:25 | Emergency (ER) | payer OTHER ==
[~2023-03-25] VITALS: Ht 190.5 cm; Wt 136.5 kg
[2023-03-25 16:25] VITALS: TEMP 98.4
[2023-03-25 17:19] LABS: PLATELET COUNT 304 K/uL (152-353)
[2023-03-25 17:26] LABS: POTASSIUM 3.9 mmol/L (3.6-5.2)
[2023-03-25 17:32] LABS: PARTIAL THROMBOPLASTIN TIME 25.1 SECONDS (23.9-36.7)
[2023-03-25 20:15] VITALS: BP 151/69
== END 2023-03-25 20:15 | disposition home or self-care (01) ==
LOC: ED 16:25
PROVIDERS: Family Medicine
DX: I16.9 Hypertensive crisis, unspecified (principal); Z91.148 Patient's other noncompliance with medication regimen for other reason
CPT/HCPCS: 80053; 84484; 85027; 85610; 85730; 93005; 96365; 96375; 99284; J0360; J1170; J1642; J2405; J3490

== ENCOUNTER 2023-05-08 08:09 | Observation (INO) | payer OTHER ==
[~2023-05-08] VITALS: Ht 190.5 cm; Wt 135.4 kg
[2023-05-08] VITALS (8 sets, daily range): BP systolic 106–199; BP diastolic 71–112; TEMP 97.5–98.7; Ht 190.5 cm; Wt 135.4 kg
[~2023-05-08 08:09] MED LIST changes: -AMLODIPINE BESYLATE PO; +AMLODIPINE PO
[2023-05-08 08:55] LABS: PLATELET COUNT 378 K/uL (152-353)
[2023-05-08 09:07] LABS: POTASSIUM 2.8 mmol/L (3.6-5.2)
[2023-05-08] MEDS ORDERED: METO50TA27 PO (13:11)
[2023-05-08] MEDS ORDERED: ZESTRIL40 MG PO (13:11)
[2023-05-08] MEDS ORDERED: HYDROCHLOROTHIAZIDE PO (13:12)
[2023-05-08] MEDS ORDERED: LANTUS100 UNIT/M SC (13:13)
[2023-05-08] MEDS ORDERED: NEURONTIN800 MG PO (13:13)
[2023-05-08] MEDS ORDERED: TIZA4TAB5 PO (13:14)
[2023-05-08] MEDS ORDERED: NOVOLIN R100 UNIT/1 SC (13:14)
[2023-05-08] MEDS ORDERED: ZOLPIDEM PO (13:15)
[2023-05-08] MEDS ORDERED: PERCOCET1 TA3 PO (13:15)
[2023-05-09] VITALS: BP 123/51; TEMP 98.7
[2023-05-09 04:00] VITALS: BP 122/62; TEMP 98.8
[2023-05-09 05:42] LABS: PLATELET COUNT 336 K/uL (152-353)
[2023-05-09 05:44] LABS: POTASSIUM 3.7 mmol/L (3.6-5.2)
[2023-05-09 08:00] VITALS: BP 131/77; TEMP 98.3
[2023-05-09 12:04] VITALS: BP 127/68; TEMP 98.4
== END 2023-05-09 14:49 | disposition home or self-care (01) ==
LOC: ED 08:09 → MED/SURG 09:31
PROVIDERS: ADMIT Family Medicine; ATTEND Internal Medicine
DX: R11.2 Nausea with vomiting, unspecified (principal); R10.9 Unspecified abdominal pain; K31.84 Gastroparesis; E11.65 Type 2 diabetes mellitus with hyperglycemia; E87.1 Hypo-osmolality and hyponatremia; E87.6 Hypokalemia; E83.42 Hypomagnesemia; I10 Essential (primary) hypertension; G62.89 Other specified polyneuropathies; N28.89 Other specified disorders of kidney and ureter; Z79.4 Long term (current) use of insulin
CPT/HCPCS: 36415; 36600; 80048; 80053; 81000; 82150; 82550; 82805; 82948; 83605; 83690; 83735; 84100; 84484; 85027; 87040; 87086; 87088; 93005; 96361; 96366; 96367; 96372; 96374; 96375; 96376; 99221; 99284; G0378; J0360; J1642; J1650; J1885; J2270; J2405; J3475; J3480; J3490